=== PATIENT | male | born 1990 | race Caucasian/White ===

== ENCOUNTER 2016-10-06 21:15 | Emergency (ER) | payer OTHER ==
[~2016-10-06] VITALS: Ht 165.1 cm; Wt 67.3 kg
[~2016-10-06 21:15] MED LIST: AUGMENTIN875 MG PO; CLONAZEPAM0.5 MG; CLONIDINE HCL0.1 MG PO; ESCITALOPRAM OX20 MG; INDOCIN50 MG PO; KLONOPIN2 MG PO; LEXAPRO20 MG PO; NORCO 5/3251 TABLET PO; SUBOXONE 8 M1 TABLET; TORADOL10 MG PO; VICODIN,LORT1 TABLET PO; ZYPREXA5 MG PO
[2016-10-06 21:22] VITALS: BP 126/85
[2016-10-06] MEDS ORDERED: NAPROSYN500 MG PO (21:33)
[2016-10-06] MEDS ORDERED: FLEXERIL10 MG PO (21:33)
== END 2016-10-06 22:09 | disposition home or self-care (01) ==
LOC: EME 21:15
DX: S20.229A Contusion of unspecified back wall of thorax, initial encounter (principal); S30.810A Abrasion of lower back and pelvis, initial encounter; S56.911A Strain of unspecified muscles, fascia and tendons at forearm level, right arm, initial encounter; S56.912A Strain of unspecified muscles, fascia and tendons at forearm level, left arm, initial encounter; W10.9XXA Fall (on) (from) unspecified stairs and steps, initial encounter; F17.200 Nicotine dependence, unspecified, uncomplicated
CPT/HCPCS: 99281; 99284

== ENCOUNTER 2017-02-05 06:15 | Emergency (ER) | payer OTHER ==
[~2017-02-05] VITALS: Ht 165.1 cm; Wt 63.3 kg
[~2017-02-05 06:15] MED LIST changes: +FLEXERIL10 MG PO; +NAPROSYN500 MG PO
[2017-02-05 06:18] VITALS: BP 139/99
[2017-02-05] MEDS ORDERED: PERIDEX473 ML MM (06:46)
== END 2017-02-05 07:02 | disposition home or self-care (01) ==
LOC: EME 06:15
DX: K02.9 Dental caries, unspecified (principal); F11.20 Opioid dependence, uncomplicated
CPT/HCPCS: 99281; 99283

== ENCOUNTER 2017-12-27 13:53 | Emergency (ER) | payer OTHER ==
[~2017-12-27] VITALS: Ht 162.6 cm; Wt 67.4 kg
[~2017-12-27 13:53] MED LIST changes: +PERIDEX473 ML MM
[2017-12-27 13:56] VITALS: BP 124/86
== END 2017-12-27 15:37 | disposition home or self-care (01) ==
LOC: EME 13:53
DX: R51 Headache (principal); Z53.21 Procedure and treatment not carried out due to patient leaving prior to being seen by health care provider